=== PATIENT | female | born 1965 | race Caucasian/White ===

== ENCOUNTER → 2017-01-06 | Outpatient (CLI) | payer BC ==
[~2017-01-06] MED LIST: CALC-51 PO; CYAN100020 PO; FERR50TA3 PO; GADAVIST IV PRN; MULTTAB58 PO; SERT-234 PO; VITAMIN D PO; [UNRECOGNIZED DRUG - OTHER] SQ; wellbutrin PO
--- NOTE | 2017-01-06 14:08 | DIAGNOSTIC IMAGING REPORT ---
BRAIN COMBO FOR MS CLINICAL HISTORY: Multiple sclerosis. Left leg pain, tingling and weakness. COMPARISON STUDY: MRI of the brain June 08, 2016. TECHNIQUE: Utilizing a 1.5 Alisson magnet, multiplanar, multi echo imaging of the brain was performed pre and postcontrast administration according to the multiple sclerosis protocol. Injection of 6 cc of Gadavist IV was uneventful. FINDINGS: There are no areas of restricted diffusion. No acute intracranial hemorrhage, midline shift or mass effect is present. Numerous white matter T2 hyperintense foci within the supratentorial and infratentorial brain are noted. These are similar to exam of June 08, 2016. No new foci of demyelination are present. There is no enhancement to suggest active demyelination. The ventricular system is normal. The basilar cisterns are patent. There are no extra-axial collections. Calvarial signal is normal. Orbits and sinuses are unremarkable. Flow-voids for the major intracranial vessels are present. IMPRESSION: 1. No significant change exam of June 08, 2016. Stable foci of previous demyelination without evidence of active demyelination. No new plaques identified. 2. No acute intracranial findings. Electronically signed by: Jono Danielle M.D. 01/06/2017 2:07 PM Dictated Date/Time: 01/06/2017 1:57 PM
--- NOTE | 2017-01-06 14:12 | DIAGNOSTIC IMAGING REPORT ---
CERVICAL SPINE COMBO CLINICAL HISTORY: 51 years-old Female presenting with multiple sclerosis. TECHNIQUE: Multisequence, multiplanar MR imaging of the cervical spine was performed before and after the administration of intravenous contrast. IV contrast: 6 mL of Gadavist. COMPARISON: 06/08/2016. FINDINGS: Normal cervical lordosis. Vertebral body heights and alignment preserved. T1 hypointense, T2 hyperintense, enhancing focus in the C7 vertebral body, stable in comparison to prior and possibly representing an atypical/lipid poor hemangioma. Intervertebral disc spaces preserved. Mild disc osteophyte complex at C5-6 mildly indents the ventral thecal sac. No significant spinal canal or neural foraminal narrowing. Spinal cord is normal in morphology, although sites of abnormal T2 signal intensity within the cord are again noted. Signal abnormality along the right aspect of C2-3 (series 16 image 8) and along the right aspect of the cord at C5 (series 16 image 14). The appearance is similar to prior exam. No new lesions. No focal enhancing lesions to suggest active disease. Craniocervical junction normal. No enhancing lesions visualized in the posterior fossa. Paraspinal soft tissues within normal limits. IMPRESSION: 1. Stable white matter lesions in the cervical spinal cord, consistent with demyelination. No new sites or enhancement to suggest progressed or active disease. 2. Mild disc osteophyte complex at C5-6. No significant spinal canal or neural foraminal narrowing. Electronically signed by: All Nixon M.D. 01/06/2017 2:10 PM Dictated Date/Time: 01/06/2017 1:58 PM
== END | disposition home or self-care (01) ==
LOC: C.MRIBC 12:29
PROVIDERS: ATTEND Psychiatry & Neurology Neurology
DX: G35 Multiple sclerosis (principal); M79.605 Pain in left leg; M25.78 Osteophyte, vertebrae

== ENCOUNTER → 2017-01-15 | Outpatient (CLI) | payer BC ==
[~2017-01-15] MED LIST changes: -GADAVIST IV PRN
[2017-01-15 18:36] LABS: THYROID STIMULATING HORMONE 2.8 uIu/ml (0.300-4.500)
[2017-01-16 12:11] LABS: LYME DISEASE AB IGG NEG (NEG); LYME DISEASE AB IGM NEG (NEG)
== END | disposition home or self-care (01) ==
LOC: C.LAB 16:39
PROVIDERS: ATTEND Psychiatry & Neurology Neurology
DX: G35 Multiple sclerosis (principal)

== ENCOUNTER → 2017-01-22 | Outpatient (CLI) | payer BC ==
[~2017-01-22] MED LIST changes: +GADAVIST IV PRN
--- NOTE | 2017-01-22 15:36 | DIAGNOSTIC IMAGING REPORT ---
THORACIC SPINE COMBO HISTORY: Demyelinating disorder G35 Multiple [id number] TECHNIQUE: Multiplanar multisequence MRI of the thoracic spine was performed both before and after the intravenous administration of contrast. COMPARISON: 11/04/2015 FINDINGS: Alignment and curvature are intact. No fracture or subluxation. No significant central canal or neural foraminal narrowing. Slight increasing cord signal at T9 and T12. Possible findings at T6. No significant postcontrast enhancement. No evidence for disc herniation or spinal stenosis. Signal characteristics of the vertebral bodies as well as intervertebral discs are unremarkable. No significant postcontrast enhancement. IMPRESSION: 1. Subtle increasing cord signal at T12, T9, and possibly T6. 2. These findings are not appreciated on the transaxial images. 3. No evidence for abnormal postcontrast enhancement. 4. The possibility of demyelinating foci must be considered. The above report was generated using voice recognition software. It may contain grammatical, syntax or spelling errors. Electronically signed by: Joshua Orozco M.D. 01/22/2017 3:35 PM Dictated Date/Time: 01/22/2017 3:29 PM
== END | disposition home or self-care (01) ==
LOC: C.MRI 13:50
PROVIDERS: ATTEND Psychiatry & Neurology Neurology
DX: G35 Multiple sclerosis (principal)

== ENCOUNTER → 2017-01-27 | Outpatient (CLI) | payer BC ==
[~2017-01-27] MED LIST changes: -GADAVIST IV PRN
[2017-01-27 12:42] LABS: BASO % 0.5 %; BASO ABS # 0.02 K/uL (0-0.2); COMPLETE YES; EOS % 2.1 %; IG% 0.2 %; LYMPH % 28.4 %; MEAN CELL VOLUME 89.7 fL (80-100); MEAN CORPUSCULAR HEMOGLOBIN 29.8 pg (25-34); MEAN CORPUSCULAR HGB CONC 33.2 g/dl (32-36); MEAN PLATELET VOLUME 10.9 fL (7.4-10.4); MONO % 7.6 %; NEUT % 61.2 %; PLATELET COUNT 253 K/uL (130-400); RED BLOOD COUNT 3.79 M/uL (4.2-5.4); WHITE BLOOD COUNT 4.22 K/uL (4.8-10.8)
[2017-01-27 12:54] LABS: ALT/SGPT 21 U/L (12-78); BLOOD UREA NITROGEN 7 mg/dl (7-18); CALCIUM 9.1 mg/dl (8.5-10.1); CARBON DIOXIDE 28 mmol/L (21-32); CHLORIDE 104 mmol/L (98-107); CREATININE 0.86 mg/dl (0.60-1.20); GLUCOSE 68 mg/dl (70-99); POTASSIUM 3.5 mmol/L (3.5-5.1); SODIUM 138 mmol/L (136-145)
[2017-01-27 12:57] LABS: ALB/GLOB RATIO 1.2 (0.9-2); ALKALINE PHOSPHATASE 78 U/L (45-117); AST/SGOT 17 U/L (15-37)
[2017-02-03 23:30] LABS: JCV ANTIBODY NEGATIVE; JCV INDEX 0.12; VARICELLA ZOS VIR IGM AB <=0.90 (<=0.90)
== END | disposition home or self-care (01) ==
LOC: C.LABBFT 10:39
PROVIDERS: ATTEND Psychiatry & Neurology Neurology
DX: G35 Multiple sclerosis (principal)

== ENCOUNTER → 2017-03-04 | Outpatient (CLI) | payer BC | END | disposition home or self-care (01) | LOC: C.CPL 14:40 | PROVIDERS: ATTEND Psychiatry & Neurology Neurology | DX: G35 Multiple sclerosis (principal) ==

== ENCOUNTER → 2017-05-15 | Outpatient (CLI) | payer BC ==
[2017-05-15 10:02] LABS: BASO % 0.4 %; BASO ABS # 0.01 K/uL (0-0.2); COMPLETE YES; EOS % 1.6 %; HEMATOCRIT 33.2 % (37-47); LYMPH % 16.9 %; LYMPH ABS # 0.41 K/uL (1.2-3.4); MEAN CORPUSCULAR HEMOGLOBIN 29.8 pg (25-34); MEAN CORPUSCULAR HGB CONC 33.4 g/dl (32-36); MEAN PLATELET VOLUME 10.4 fL (7.4-10.4); MONO % 9.9 %; NEUT % 71.2 %; PLATELET COUNT 206 K/uL (130-400); RED BLOOD COUNT 3.73 M/uL (4.2-5.4); WHITE BLOOD COUNT 2.43 K/uL (4.8-10.8)
[2017-05-15 10:26] LABS: ALT/SGPT 24 U/L (12-78); BLOOD UREA NITROGEN 13 mg/dl (7-18); BUN/CREATININE RATIO 14.4 (10-20); CALCIUM 8.8 mg/dl (8.5-10.1); CARBON DIOXIDE 28 mmol/L (21-32); CHLORIDE 104 mmol/L (98-107); GLUCOSE 72 mg/dl (70-99); POTASSIUM 3.4 mmol/L (3.5-5.1); SODIUM 138 mmol/L (136-145)
[2017-05-15 10:29] LABS: ALB/GLOB RATIO 1.3 (0.9-2); ALKALINE PHOSPHATASE 72 U/L (45-117); AST/SGOT 16 U/L (15-37)
== END | disposition home or self-care (01) ==
LOC: C.LAB 09:43
PROVIDERS: ATTEND Psychiatry & Neurology Neurology
DX: G35 Multiple sclerosis (principal)

== ENCOUNTER → 2017-05-31 | Outpatient (CLI) | payer BC ==
[2017-05-31 17:45] LABS: BASO % 0.3 %; BASO ABS # 0.01 K/uL (0-0.2); COMPLETE YES; EOS % 1.4 %; HEMATOCRIT 33.9 % (37-47); LYMPH % 11.7 %; LYMPH ABS # 0.43 K/uL (1.2-3.4); MEAN CELL VOLUME 91.4 fL (80-100); MEAN CORPUSCULAR HEMOGLOBIN 29.6 pg (25-34); MEAN CORPUSCULAR HGB CONC 32.4 g/dl (32-36); MEAN PLATELET VOLUME 11.9 fL (7.4-10.4); MONO % 8.9 %; NEUT % 77.7 %; PLATELET COUNT 187 K/uL (130-400); RED BLOOD COUNT 3.71 M/uL (4.2-5.4); WHITE BLOOD COUNT 3.69 K/uL (4.8-10.8)
== END | disposition home or self-care (01) ==
LOC: C.LABBFT 11:12
PROVIDERS: ATTEND Psychiatry & Neurology Neurology
DX: G35 Multiple sclerosis (principal)

== ENCOUNTER → 2017-09-07 | Outpatient (CLI) | payer BC ==
--- NOTE | 2017-09-07 14:56 | MAMMOGRAPHY REPORT ---
BILATERAL DIGITAL SCREENING MAMMOGRAM TOMOSYNTHESIS WITH CAD: 09/07/2017 CLINICAL HISTORY: Routine screening. Patient has no complaints. TECHNIQUE: Breast tomosynthesis in addition to standard 2D mammography was performed. Current study was also evaluated with a Computer Aided Detection (CAD) system. COMPARISON: Comparison is made to exams dated: 09/25/2015 mammogram, 12/02/2012 mammogram, 12/02/2011 ma mmogram, 11/27/2010 mammogram, and 11/12/2010 mammogram - [facility]. BREAST COMPOSITION: The tissue of both breasts is extremely dense, which lowers the sensitivity of m ammography. FINDINGS: No suspicious masses, calcifications, or areas of architectural distortion are noted in ei ther breast. There has been no significant interval change compared to prior exams. Small nodular as ymmetry within the right medial anterior breast on the cc view is stable dating back to at least the 2012 exam. A few scattered bilateral benign-appearing calcifications are again noted. IMPRESSION: ACR BI-RADS CATEGORY 2: BENIGN There is no mammographic evidence of malignancy. A 1 year screening mammogram is recommended. The pa tient will receive written notification of the results. Approximately 10% of breast cancers are not detected with mammography. A negative mammographic report should not delay biopsy if a clinically suggestive mass is present. Abiola French M.D. /:09/07/2017 14:07:43 Ethics Officer: Maggie AYALA)(Joesph), [facility] letter sent: Normal 1/2 BI-RADS Code: ACR BI-RADS Category 2: Benign
== END | disposition home or self-care (01) ==
LOC: C.MAMM 11:18
PROVIDERS: ATTEND Family Medicine
DX: Z12.31 Encounter for screening mammogram for malignant neoplasm of breast (principal)

== ENCOUNTER → 2017-10-04 | Outpatient (CLI) | payer BC ==
[2017-10-04 15:52] LABS: ALBUMIN 3.7 gm/dl (3.4-5.0); ALT/SGPT 27 U/L (12-78); AST/SGOT 17 U/L (15-37); BLOOD UREA NITROGEN 7 mg/dl (7-18); CALCIUM 8.8 mg/dl (8.5-10.1); CARBON DIOXIDE 29 mmol/L (21-32); CREATININE 0.78 mg/dl (0.60-1.20); GLUCOSE 90 mg/dl (70-99); POTASSIUM 3.9 mmol/L (3.5-5.1); SODIUM 134 mmol/L (136-145)
[2017-10-04 15:55] LABS: ALKALINE PHOSPHATASE 76 U/L (45-117); TOTAL PROTEIN 6.8 gm/dl (6.4-8.2)
[2017-10-04 16:04] LABS: BASO % 0.2 %; BASO ABS # 0.01 K/uL (0-0.2); EOS % 1.5 %; EOS ABS # 0.07 K/uL (0-0.5); HEMATOCRIT 32.7 % (37-47); HEMOGLOBIN 11.1 g/dL (12.0-16.0); IG# 0.01 K/uL (0.00-0.02); LYMPH % 11.3 %; LYMPH ABS # 0.53 K/uL (1.2-3.4); MEAN CELL VOLUME 90.1 fL (80-100); MEAN CORPUSCULAR HEMOGLOBIN 30.6 pg (25-34); MEAN CORPUSCULAR HGB CONC 33.9 g/dl (32-36); MEAN PLATELET VOLUME 10.8 fL (7.4-10.4); MONO % 9.6 %; MONO ABS # 0.45 K/uL (0.11-0.59); NEUT % 77.2 %; NEUT ABS # 3.61 K/uL (1.4-6.5); PLATELET COUNT 232 K/uL (130-400); RED CELL DISTRIBUTION WIDTH CV 12.9 % (11.5-14.5); RED CELL DISTRIBUTION WIDTH SD 42.3 fL (36.4-46.3); WHITE BLOOD COUNT 4.68 K/uL (4.8-10.8)
== END | disposition home or self-care (01) ==
LOC: C.LAB1850 14:35
PROVIDERS: ATTEND Psychiatry & Neurology Neurology
DX: G35 Multiple sclerosis (principal)

== ENCOUNTER 2022-02-04 17:11 | Inpatient (IN) ==
[2022-02-04 18:05] LABS: Basophils # (auto) 0.03 K/uL (0-0.2); Basophils % (auto) 0.2 %; Eosinophils # (auto) 0.06 K/uL (0-0.50); Eosinophils % (auto) 0.5 %; Hematocrit (blood only) 33.4 % (34.1-44.9); Hemoglobin 11.3 g/dl (12.0-16.0); Immature Granulocytes # (auto) 0.04 K/uL (0.00-0.02); Immature Granulocytes % (auto) 0.3 %; Mean Corpuscular Hemoglobin 30.5 pg (25.0-34.0); Mean Corpuscular Hgb Conc 33.8 g/dL (32.0-36.0); Mean Corpuscular Volume 90.3 fL (80.0-100.0); Mean Platelet Volume 10.9 fL (9.4-12.3); Monocytes # (auto) 0.93 K/uL (0.24-0.82); Monocytes % (auto) 7.4 %; Neutrophils # (auto) 10.95 K/uL (1.4-6.5); Neutrophils % (auto) 87.6 %; Platelet Count 238 K/uL (130-400); RDW Coefficient of Variation 12.4 % (11.5-14.5); RDW Standard Deviation 40.8 fL (36.4-46.3); White Blood Count 12.51 K/ul (4.8-10.8)
[2022-02-04] MEDS ORDERED: dexAMETHasone**PF** 10 MG/ML VIAL IV ONE (18:15)
[2022-02-04] MEDS ORDERED: ONDANSETRON INJ 2 MG/ML 2 ML VIAL IV STA (18:15)
[2022-02-04] MEDS: HYDROmorphone INJ 0.5 MG/0.5 ML SYR IV PRN ×2 (18:21→21:03)
[2022-02-04 18:22] LABS: Alanine Aminotransferase 9 U/L (7-52); Albumin Globulin Ratio 1.5 (0.9-2); Albumin Level 4.1 gm/dl (3.4-5.0); Alkaline Phosphatase 84 U/L (34-104); Anion Gap 5 (3-11); Aspartate Aminotransferase 12 U/L (13-39); BUN Creatinine Ratio 9.8 (10-20); Bilirubin,Total 0.7 mg/dl (0.2-1.0); Blood Urea Nitrogen 8 mg/dl (6-23); Calcium 9.7 mg/dl (8.5-10.1); Carbon Dioxide 28 mmol/L (21-32); Chloride 102 mmol/L (98-107); Est GFR (Non-African American) 81.1 ml/min; Globulin 2.7 gm/dl (2.5-4.0); Glucose 102 mg/dl (70-99(Fasting)); Potassium 3.6 mmol/L (3.5-5.1); Sodium 135 mmol/L (136-145); Total Protein 6.8 gm/dl (6.0-8.3)
--- NOTE | 2022-02-04 18:58 | Emergency Department Note ---
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 The patient was evaluated. Clinically she did have swelling on the left side and was quite uncomfortable. She was given IV Dilaudid, Decadron, and Zofran. Blood work revealed a leukocytosis. Chemistry panel was unremarkable. Patient was sent for CT imaging and this did confirm a 1 cm left peritonsillar abscess. There was moderate supraglottic airway edema. Patient was reassessed. She was feeling better but still had moderate pain with swallowing. She had no stridor. Patient was given IV clindamycin. I did consult with ENT, Dr. Koenig. He agreed with the steroids and antibiotics. He felt was reasonable for her to be admitted for additional steroids and antibiotics and he would consult with her tomorrow. He noted at this point the small size of the abscess would be challenging to drain but was concerned about the swelling. Consultation was made with Dr. Umair Torres of the [facility] service. Patient was evaluated in the ER for further management. Triage Nursing notes reviewed and agree them. Vital Signs: reviewed and remarkable for no significant abnormalities Differential diagnosis: Viral syndrome, tonsillitis, streptococcal pharyngitis, mononucleosis, peritonsillar abscess, retropharyngeal abscess, otitis, pneumonia, influenza, as well as other pathologies. Diagnostics interpreted by me: ECG: none Cardiac Monitoring: Cardiac monitoring ordered by me: The patient was placed on continuous cardiac monitoring and observed. It revealed a normal sinus rhythm at 94 beats per minute without ectopy or evidence of dysrhythmia. Imaging studies: CT scan as noted below. Left peritonsillar abscess. HPI: The patient is a 56year old female who presents to the Emergency Room with complaints of acute left-sided sore throat. This started 2 days ago and is worsening. The patient also notes the following associated symptoms, difficulty swallowing. The patient has no relieving factors. Current pain is rated as 8/10. Patient was seen by family medicine and sent to the ER due to concerns about possible peritonsillar abscess on the left side. Pt denies LOC, headache, fevers, chills, diaphoresis, visual changes, right-sided neck pain, chest pain, breathing difficulties, nausea, vomiting, abdominal pain, back pain, melena, hematochezia, urinary symptoms, numbness, weakness, rash, or other complaints. ROS: See above HPI for pertinent positives & negatives. A total of 10 systems reviewed and were otherwise negative. PAST MEDICAL HISTORY:See Below , anxiety, depression PAST SURGICAL HISTORY:See Below, FAMILY HISTORY:See Below SOCIAL HISTORY:See Below, HOME MEDICATIONS:See Below ALLERGIES:See Below VITALS:See Below PHYSICAL EXAMINATION: GENERAL: Awake, alert, uncomfortable-appearing, in no distress HENT: Normocephalic, atraumatic. Oropharynx examination reveals some mild uvular deviation to the right. Mild left tonsillar fossa swelling. No exudate. Tongue and floor the mouth unremarkable. EYES: Normal conjunctiva. Sclera non-icteric. NECK: Inspection normal. [id number]. Supple. No nuchal rigidity. FROM. No masses. No stridor. RESPIRATORY: Clear to auscultation. No wheezes. No rales. Normal respiratory effort. CARDIAC: Normal rate. Normal rhythm. No murmurs. No rubs. Extremities warm and well perfused. Pulses equal. No JVD. GI: Soft, non-distended. No tenderness to palpation. No rebound or guarding. No masses. RECTAL: Deferred. MUSCULOSKELETAL: Atraumatic. Chest examination reveals no tenderness. The back is symmetrical on inspection without obvious abnormality. There is no CVA tenderness to palpation. No joint edema. LOWER EXTREMITIES: Calves are equal size bilaterally and non-tender. No edema. No discoloration. NEURO: Normal sensorium. No sensory or motor deficits noted. SKIN: No rash or jaundice noted. Yovani White MD Past Med/Surg History Medical History (Updated 02/04/22 @ 20:53 by Yoselin Cardenas PA-C) Multiple sclerosis Social History Smoking Status: Never smoker Preferred Language: Macedonian marital status: Current Living Situation: Spouse Feels Safe at Home: Yes Allergies Allergies Allergy/AdvReac Type Severity Reaction Status Date / Time amoxicillin Allergy Intermediate rash Verified 10/30/21 11:22 Penicillins Allergy Unknown Verified 10/30/21 11:22 metronidazole AdvReac Severe diarrhea Verified 10/30/21 11:22 Bactrim AdvReac Intermediate vomiting Unverified 12/09/16 12:37 from oral bactrim sulfamethoxazole AdvReac Intermediate vomiting Verified 10/30/21 11:22 from oral bactrim trimethoprim AdvReac Intermediate vomiting Verified 10/30/21 11:22 from oral bactrim Home Meds Home Medications Medication Instructions Recorded Confirmed bupropion HCl 100 mg tablet,12 hr 100 mg PO DAILY 08/16/18 02/04/22 sustained-release (Wellbutrin SR) cholecalciferol (vitamin D3) 25 0 unit PO DAILY 08/16/18 02/04/22 mcg (1,000 unit) capsule (Vitamin D3) lorazepam 0.5 mg tablet (Ativan) 0.5 mg PO DAILY PRN Anxiety 08/16/18 02/04/22 multivitamin 1 tab PO DAILY 08/16/18 02/04/22 sertraline 100 mg tablet (Zoloft) 100 mg PO HS 08/16/18 02/04/22 Previous Rx's Medication Instructions Recorded ocrelizumab 30 mg/mL intravenous 600 mg (20 mL) IV .COMPLEX #10 mL 09/22/21 solution (Ocrevus) gabapentin 100 mg capsule 100 mg PO BID 90 days #180 caps 12/26/21 Results & Data (ED) Vital Signs Vital Signs - 24 hr 02/04/22 17:14 02/04/22 18:02 Temperature 36.5 C Temperature Source Skin Pulse Rate 94 H Pulse Rhythm Regular Pulse Strength Normal Respiratory Rate 18 Respiratory Effort / Characteristics Non-Labored Spontaneous Respiratory Depth Normal Respiratory Pattern Regular Blood Pressure 129/79 Blood Pressure Mean 95 Blood Pressure Position Sitting Pulse Oximetry 99 Oxygen Delivery Method Room Air Room Air Sepsis Recent Fever Within 48 Hours No Sepsis New/Unexplained Change in Mental Status No Sepsis Action Taken by Nursing No Action Required Laboratory Data Result diagrams: 02/04/22 17:50 02/04/22 17:50 Lab Results 02/04/22 02/04/22 02/04/22 Range/Units 17:50 17:50 17:50 WBC 12.51 H (4.8-10.8) K/ul RBC 3.70 L (3.93-5.22) M/uL Hgb 11.3 L (12.0-16.0) g/dl Hct 33.4 L (34.1-44.9) % MCV 90.3 (80.0-100.0) fL MCH 30.5 (25.0-34.0) pg MCHC 33.8 (32.0-36.0) g/dL RDW Std Deviation 40.8 (36.4-46.3) fL RDW Coeff of Sandee 12.4 (11.5-14.5) % Plt Count 238 (130-400) K/uL MPV 10.9 (9.4-12.3) fL Immature Gran % (Auto) 0.3 % Neut % (Auto) 87.6 % Lymph % (Auto) 4.0 % Meade % (Auto) 7.4 % Eos % (Auto) 0.5 % Baso % (Auto) 0.2 % Neut # (Auto) 10.95 H (1.4-6.5) K/uL Lymph # (Auto) 0.50 L (1.2-3.4) K/uL Meade # (Auto) 0.93 H (0.24-0.82) K/uL Eos # (Auto) 0.06 (0-0.50) K/uL Baso # (Auto) 0.03 (0-0.2) K/uL Immature Gran # (Auto) 0.04 H (0.00-0.02) K/uL Sodium 135 L (136-145) mmol/L Potassium 3.6 (3.5-5.1) mmol/L Chloride 102 (98-107) mmol/L Carbon Dioxide 28 (21-32) mmol/L Anion Gap 5 (3-11) BUN 8 (6-23) mg/dl Creatinine 0.82 (0.6-1.2) mg/dl Est Cr Clr Drug Dosing Not Reportable Est GFR ( Amer) 94.0 ml/min Est GFR (Non-Af Amer) 81.1 ml/min BUN/Creatinine Ratio 9.8 L (10-20) Glucose 102 H (70-99(Fasting)) mg/dl Calcium 9.7 (8.5-10.1) mg/dl Total Bilirubin 0.7 (0.2-1.0) mg/dl AST 12 L (13-39) U/L ALT 9 (7-52) U/L Alkaline Phosphatase 84 (34-104) U/L Total Protein 6.8 (6.0-8.3) gm/dl Albumin 4.1 (3.4-5.0) gm/dl Globulin 2.7 (2.5-4.0) gm/dl Albumin/Globulin Ratio 1.5 (0.9-2) SARS-CoV-2, RNA, NAAT NEGATIVE (NEGATIVE) Administered Medications Hydromorphone HCl (Hydromorphone Inj 0.5 Mg/0.5 Ml Syr) 0.5 mg IV Q15M PRN PRN Reason: Pain Stop: 02/18/22 18:14 Last Admin: 02/04/22 21:03 Dose: 0.5 mg Documented By: Admin: 02/04/22 18:21 Dose: 0.5 mg Documented By: RAMOS Miscellaneous (Patient's Height &/Or Weight Needed) 1 each N/A Q2H ELLEN Stop: 02/04/22 23:59 Last Admin: 02/04/22 21:25 Dose: 1 each Documented By: RAMOS Discontinued Medications Dexamethasone Sodium Phosphate (DexamethasonePf 10 Mg/Ml Vial) 10 mg IV NOW ONE Stop: 02/04/22 18:16 Last Admin: 02/04/22 18:22 Dose: 10 mg Documented By: RAMOS Clindamycin Phosphate (Cleocin/D5w) 600 mg in 50 mls @ 100 mls/hr IV NOW ONE Stop: 02/04/22 20:19 Last Infusion: 02/04/22 22:11 Dose: 0 mls/hr Documented By: Admin: 02/04/22 21:41 Dose: 100 mls/hr Documented By: RAMOS Ioversol (Optiray 300 100ml) 80 ml IV ONCE ONE Stop: 02/04/22 19:14 Last Admin: 02/04/22 19:14 Dose: 80 ml Documented By: PERLITA Ondansetron HCl (Ondansetron Inj 2 Mg/Ml 2 Ml Vial) 4 mg IV NOW STA Stop: 02/04/22 18:16 Last Admin: 02/04/22 18:22 Dose: 4 mg Documented By: RAMOS Imaging Data Radiologist's Impression: Soft Tissue Neck CT 02/04/22 18:15 CT OF THE NECK WITH IV CONTRAST CLINICAL HISTORY: Left neck pain and swelling. Evaluate for peritonsillar abscess. COMPARISON STUDY: MRI of the cervical spine June 02, 2021. Thyroid u ltrasound November 08, 2018. TECHNIQUE: Following IV administration of 80 mL of Optiray, helical axial images of the neck were obtained. Sagittal and coronal reconstructions were viewed. Automated exposure control was utilized for the study. A dose lowering technique was utilized adhering to the principles of ALARA. CT DOSE: 289.10 mGy.cm FINDINGS: Visualized portions of the intracranial contents are unremarkable. Mastoid air cells are clear. There is mild polypoid mucosal thickening of the right maxillary sinus. Orbits are unremarkable. Epiglottis is unremarkable. Note is made of asymmetric enhancement of the left tonsil with moderate peritonsillar edema and associated thickening of the left aryepiglottic fold. The left aspect of the vallecula and left piriform sinus are effaced. There is moderate narrowing of the supraglottic airway. Note is made of an associated 1 cm enhancing fluid collection adjacent to the left tonsils shown on axial image 132 of 309 consistent with a small peritonsillar abscess. There is no soft tissue gas. There is no prevertebral edema. No additional fluid collections are present. Parotid and submandibular glands are unremarkable. 1.4 cm hypodense right lobe thyroid nodule is better depicted on prior thyroid ultrasound. Visualized portions of the lung apices are unremarkable. Major vasculature of the neck is patent. IMPRESSION: Acute left-sided tonsillitis with a small 1 cm peritonsillar abscess. Moderate left parapharyngeal/peritonsillar edema with thickening of the left aryepiglottic fold and effacement of the left piriform sinus. Edema results in moderate supraglottic airway narrowing. ACT 112: Negative or not required by law. Electronically signed by: Jono Danielle M.D. 02/04/2022 7:36 PM Discharge Plan Visit Data Chief Complaint: Throat Pain Stated Complaint: REF BY , THROAT PAIN ED Provider: Yovani White Discharge Problem: Peritonsillar abscess, Acute sore throat, Leukocytosis Forms Stand Alone Forms: My Identiv Prescriptions Prescriptions: No Action gabapentin 100 mg capsule 100 mg PO BID 90 Days Qty: 180 1RF Hold Instructions: temporary increase for one week Ocrevus 30 mg/mL solution 600 mg IV .COMPLEX Qty: 10 1RF Rx Instructions: 300 mg IV Day1 and Day15,then 600mg IV every 6 months. 30 mins before each infusion, premedicate w/ methylprednisolone 100mg iv,Diphenhydramine 25mg iv,and Actaminophen 500mg PO. ; May give an additional 25mg diphenhydramine IV during infusion PRN multivitamin Tablet 1 tab PO DAILY sertraline [Zoloft] 100 mg tablet 100 mg PO HS bupropion HCl [Wellbutrin SR] 100 mg tablet sustained-release 12 hr 100 mg PO DAILY lorazepam [Ativan] 0.5 mg tablet 0.5 mg PO DAILY PRN (Reason: Anxiety) cholecalciferol (vitamin D3) [Vitamin D3] 1,000 unit Capsule 0 unit PO DAILY Referrals Referrals: Isaac Navarro MD [Primary Care Provider] -
[2022-02-04] MEDS ORDERED: OPTIRAY 300 100mL IV ONE (19:13)
--- NOTE | 2022-02-04 19:39 | CT Scan Report ---
CT OF THE NECK WITH IV CONTRAST CLINICAL HISTORY: Left neck pain and swelling. Evaluate for peritonsillar abscess. COMPARISON STUDY: MRI of the cervical spine June 02, 2021. Thyroid ultrasound November 08, 2018. TECHNIQUE: Following IV administration of 80 mL of Optiray, helical axial images of the neck were ob tained. Sagittal and coronal reconstructions were viewed. Automated exposure control was utilized f or the study. A dose lowering technique was utilized adhering to the principles of ALARA. CT DOSE: 289.10 mGy.cm FINDINGS: Visualized portions of the intracranial contents are unremarkable. Mastoid air cells are c lear. There is mild polypoid mucosal thickening of the right maxillary sinus. Orbits are unremarkable . Epiglottis is unremarkable. Note is made of asymmetric enhancement of the left tonsil with moderate peritonsillar edema and associated thickening of the left aryepiglottic fold. The left aspect of the vallecula and left piriform sinus are effaced. There is moderate narrowing of the supraglottic airwa y. Note is made of an associated 1 cm enhancing fluid collection adjacent to the left tonsils shown o n axial image 132 of 309 consistent with a small peritonsillar abscess. There is no soft tissue gas. There is no prevertebral edema. No additional fluid collections are present. Parotid and submandibula r glands are unremarkable. 1.4 cm hypodense right lobe thyroid nodule is better depicted on prior thy roid ultrasound. Visualized portions of the lung apices are unremarkable. Major vasculature of the ne ck is patent. IMPRESSION: Acute left-sided tonsillitis with a small 1 cm peritonsillar abscess. Moderate left parapharyngeal/pe ritonsillar edema with thickening of the left aryepiglottic fold and effacement of the left piriform sinus. Edema results in moderate supraglottic airway narrowing. ACT 112: Negative or not required by law. Electronically signed by: Jono Danielle M.D. 02/04/2022 7:36 PM
[2022-02-04] MEDS ORDERED: CLINDAMYCIN/D5W 600 MG/50 ML BAG IV ONE (19:50)
--- NOTE | 2022-02-04 20:14 | History & Physical Report ---
Date of Service February 04, 2022 Assessment & Plan (1) Peritonsillar abscess: Plan: - CT shows acute left-sided tonsillitis with a small 1 cm peritonsillar abscess. Moderate left parapharyngeal/peritonsillar edema with thickening of the left aryepiglottic fold and effacement of the left piriform sinus. Edema results in moderate supraglottic airway narrowing. - Clindamycin 600 mg IV every 8 hours, will add on Levaquin for H flu coverage. - 10 mg IV dexamethasone in ED, repeat this tomorrow. - N.p.o. now, supportive fluids - ENT consultation placed, appreciate their recommendations. - Pain control with Tylenol, morphine. - Antiemetics as needed. (2) Multiple sclerosis: Plan: - Ocrelizumab injections every 6 months, due next month. - Gabapentin 100 mg daily; hold while NPO. (3) Depression: Plan: - Hold all p.o. meds that cannot be converted to IV. - Takes Zoloft 100 mg at night, Ativan 0.5 mg as needed, Wellbutrin 100 mg daily. (4) Anemia: Plan: - 11.3, consistent with outpatient labs. Monitor. Plan - Admit to PCU. - SCDs for VTE ppx. - Full Code. History of Present Illness Chief Complaint: Throat pain and difficulty swallowing x2 days Primary Care Provider: Isaac Navarro MD Danisha Greene is a 56-year-old female with a past medical history significant for MS and depression who presents today with a sore throat. Yesterday morning, she woke up and the left side of her throat was sore and she felt fatigued. She took Advil and slept the rest of the day, the pain got somewhat better but never really went away. She woke up this morning and it was significantly worse and she was having difficulty swallowing due to pain, managing only to sip on chicken broth. She saw her PCP who referred her to the ED due to concerns for a peritonsillar abscess. She has been hot and cold the past two days but no objective fevers, SOB, choking, chest pain, palpitations, nausea, or vomiting. She has not had this occur before, no recent dental work or ENT infections. In ED, patient's HR 94, otherwise vital signs within normal limits, they are stable. Labs significant for WBC 12.51 with left shift, Hgb 11.3 which is consistent with her baseline, renal function at baseline, without any electrolyte abnormalities, no transaminitis. COVID-negative. CT of soft tissues of the neck showed acute left-sided tonsillitis with a small 1 cm peritonsillar abscess and moderate left parapharyngeal/peritonsillar edema with thickening of the left aryepiglottic fold and effacement of the left piriform sinus with moderate supraglottic airway narrowing. Patient received clindamycin, dexamethasone, hydromorphone, and Zofran in the ED. Allergies Allergy/AdvReac Type Severity Reaction Status Date / Time amoxicillin Allergy Intermediate rash Verified 10/30/21 11:22 Penicillins Allergy Unknown Verified 10/30/21 11:22 metronidazole AdvReac Severe diarrhea Verified 10/30/21 11:22 Bactrim AdvReac Intermediate vomiting Unverified 12/09/16 12:37 from oral bactrim sulfamethoxazole AdvReac Intermediate vomiting Verified 10/30/21 11:22 from oral bactrim trimethoprim AdvReac Intermediate vomiting Verified 10/30/21 11:22 from oral bactrim Home Medications Medication Instructions Recorded Confirmed Type bupropion HCl 100 mg tablet,12 hr 100 mg PO DAILY 08/16/18 02/04/22 History sustained-release (Wellbutrin SR) cholecalciferol (vitamin D3) 25 0 unit PO DAILY 08/16/18 02/04/22 History mcg (1,000 unit) capsule (Vitamin D3) lorazepam 0.5 mg tablet (Ativan) 0.5 mg PO DAILY PRN Anxiety 08/16/18 02/04/22 History multivitamin 1 tab PO DAILY 08/16/18 02/04/22 History sertraline 100 mg tablet (Zoloft) 100 mg PO HS 08/16/18 02/04/22 History ocrelizumab 30 mg/mL intravenous 600 mg (20 mL) IV .COMPLEX #10 mL 09/22/21 02/04/22 Rx solution (Ocrevus) gabapentin 100 mg capsule 100 mg PO BID 90 days #180 caps 12/26/21 02/04/22 Rx Past Med/Surg History Medical History Multiple sclerosis Social History Smoking Status: Never smoker Hx Alcohol Use: No Preferred Language: Setswana Beliefs That Will Affect Care: None marital status: Current Living Situation: Spouse and Family Feels Safe at Home: Yes Safety Concerns: Feels Safe At This Time Assistive Devices: Cane Assistive Devices Comment: uses cane occassionaly Review of Systems Review of Systems: Constitutional: No fever/chills, weakness, fatigue, myalgias, anorexia, night sweats Eyes: No diplopia, no worsening or blurred vision ENT: sore throat, difficulty swallowing Respiratory: No cough, sputum, dyspnea at rest or on exertion Cardiovascular: No chest pain, tightness or palpitations Abdomen: No pain, nausea, vomiting, diarrhea or constipation : Denies dysuria, hematuria, increased urgency/frequency, urinary retention Musculoskeletal: No joint pain, calf pain, swelling Neurologic: No weakness, numbness/tingling, or balance problems Psychiatric: No anxiety or depression Skin: No rash or itch Physical Exam Physical Exam: General: awake, alert, no apparent distress Head: Normocephalic, atraumatic ENT: left tonsil appears inflamed with minimal white exudate noted, swelling on left side of throat; exam limited by patient's pain; PERRL, EOMI, mucous membranes moist Chest: Clear to auscultation, on room air, no adventitious breath sounds Cardiac: Regular rate and rhythm, no murmur, no JVD, normal peripheral pulses, good capillary refill Abdominal: NABS x 4 quadrants, soft, nontender to palpation, no rebound, guarding or tenderness Extremities: Normal inspection, no peripheral edema or erythema, calfs nontender to palpation Psych: Normal mood and affect Neuro: AAO x 3, strength intact bilaterally and rated 5/5, no motor deficits, speech is clear, no peripheral sensory deficits Skin: no rash or erythema Results & Data Results & Data ([facility]) Vital Signs (Past 12 Hours) Vital Signs Temp Pulse Resp BP Pulse Ox O2 Del Method 02/04/22 18:02 Room Air 02/04/22 17:14 36.5 C 94 H 18 129/79 99 Room Air Laboratory Results Abnormal lab results 02/04/22 02/04/22 Range/Units 17:50 17:50 WBC 12.51 H (4.8-10.8) K/ul RBC 3.70 L (3.93-5.22) M/uL Hgb 11.3 L (12.0-16.0) g/dl Hct 33.4 L (34.1-44.9) % Neut # (Auto) 10.95 H (1.4-6.5) K/uL Lymph # (Auto) 0.50 L (1.2-3.4) K/uL [place] # (Auto) 0.93 H (0.24-0.82) K/uL Immature Gran # (Auto) 0.04 H (0.00-0.02) K/uL Sodium 135 L (136-145) mmol/L BUN/Creatinine Ratio 9.8 L (10-20) Glucose 102 H (70-99(Fasting)) mg/dl AST 12 L (13-39) U/L Diagnostic Findings Soft Tissue Neck CT 02/04/22 18:15 CT OF THE NECK WITH IV CONTRAST CLINICAL HISTORY: Left neck pain and swelling. Evaluate for peritonsillar abscess. COMPARISON STUDY: MRI of the cervical spine June 02, 2021. Thyroid ultrasound November 08, 2018. TECHNIQUE: Following IV administration of 80 mL of Optiray, helical axial images of the neck were obtained. Sagittal and coronal reconstructions were viewed. Automated exposure control was utilized for the study. A dose lowering technique was utilized adhering to the principles of ALARA. CT DOSE: 289.10 mGy.cm FINDINGS: Visualized portions of the intracranial contents are unremarkable. Mastoid air cells are clear. There is mild polypoid mucosal thickening of the right maxillary sinus. Orbits are unremarkable. Epiglottis is unremarkable. Note is made of asymmetric enhancement of the left tonsil with moderate peritonsillar edema and associated thickening of the left aryepiglottic fold. The left aspect of the vallecula and left piriform sinus are effaced. There is moderate narrowing of the supraglottic airway. Note is made of an associated 1 cm enhan cing fluid collection adjacent to the left tonsils shown on axial image 132 of 309 consistent with a small peritonsillar abscess. There is no soft tissue gas. There is no prevertebral edema. No additional fluid collections are present. Parotid and submandibular glands are unremarkable. 1.4 cm hypodense right lobe thyroid nodule is better depicted on prior thyroid ultrasound. Visualized portions of the lung apices are unremarkable. Major vasculature of the neck is patent. IMPRESSION: Acute left-sided tonsillitis with a small 1 cm peritonsillar abscess. Moderate left parapharyngeal/peritonsillar edema with thickening of the left aryepiglottic fold and effacement of the left piriform sinus. Edema results in moderate supraglottic airway narrowing. ACT 112: Negative or not required by law. Electronically signed by: Jono Danielle M.D. 02/04/2022 7:36 PM Code Status & VTE Plan Code Status Full code. Supervising Physician Co-Signing Physician Notes Attending addendum: I have physically seen this patient, have supervised the JAIME's activities, and agree with the H&P unless as otherwise noted. Assessment and Plan: Peritonsillar abscess- Immunocompromised Clindamycin 600 mg IV every 8 hours Levofloxacin 5 mg IV daily N.p.o. IV fluids Acetaminophen 1 g IV every 8 hours as needed for mild pain or fever Morphine sulfate 2 mg IV every 4 hours as needed for moderate to severe pain Zofran 4 mg IV every 6 hours as needed Consult ENT Multiple sclerosis- Outpatient injections every 6 months Remaining orders and notations as noted PG Care Time/CCT Total # of Minutes Spent Total Time Spent with Patient: Total time spent is greater than 50% in coordination of care (as documented) at patient's floor/unit and/or counseling patient: Coding Level of Care Code 49474 Initial Inpt Care Lvl 1 Diagnoses Peritonsillar abscess J36 Multiple sclerosis G35 Depression F32.A Anemia D64.9
[2022-02-04] MEDS: Patient's HEIGHT &/or WEIGHT Needed SCH (21:25)
[2022-02-05] MEDS ORDERED: HYDROmorphone INJ 0.5 MG/0.5 ML SYR IV PRN ×2 (00:33)
[2022-02-05] MEDS ORDERED: LACTATED RINGER'S 1,000 ML IV SCH (00:33)
[2022-02-05] MEDS ORDERED: POLYETHYLENE (MIRALAX) 17 GM PACK PO PRN (00:33)
[2022-02-05] MEDS ORDERED: ACETAMINOPHEN 1,000 MG/100 ML VIAL IV PRN (00:33)
[2022-02-05] MEDS ORDERED: levoFLOXacin/D5W 750 MG/150 ML BAG IV SCH (01:00)
[2022-02-05] MEDS: Patient's HEIGHT &/or WEIGHT Needed SCH (01:22)
[2022-02-05] MEDS ORDERED: HYDROmorphone INJ 1 MG/ML SYRINGE IV ONE (04:00)
[2022-02-05 05:09] LABS: Hematocrit (blood only) 32.5 % (34.1-44.9); Hemoglobin 10.8 g/dl (12.0-16.0); Mean Corpuscular Hemoglobin 29.7 pg (25.0-34.0); Mean Corpuscular Hgb Conc 33.2 g/dL (32.0-36.0); Mean Corpuscular Volume 89.3 fL (80.0-100.0); Mean Platelet Volume 11.2 fL (9.4-12.3); Platelet Count 237 K/uL (130-400); RDW Coefficient of Variation 12.2 % (11.5-14.5); Red Blood Count 3.64 M/uL (3.93-5.22); White Blood Count 13.98 K/ul (4.8-10.8)
[2022-02-05 05:38] LABS: Basophils # (auto) 0.01 K/uL (0-0.2); Basophils % (auto) 0.1 %; Immature Granulocytes # (auto) 0.06 K/uL (0.00-0.02); Immature Granulocytes % (auto) 0.4 %; Lymphocytes # (auto) 0.39 K/uL (1.2-3.4); Lymphocytes % (auto) 2.8 %; Monocytes # (auto) 0.36 K/uL (0.24-0.82); Monocytes % (auto) 2.6 %; Neutrophils # (auto) 13.16 K/uL (1.4-6.5); Neutrophils % (auto) 94.1 %; Ovalocytes 1+
[2022-02-05 05:39] LABS: BUN Creatinine Ratio 15.4 (10-20); Calcium 9.6 mg/dl (8.5-10.1); Est GFR (African American) 116.7 ml/min; Est GFR (Non-African American) 100.7 ml/min; Potassium 4.2 mmol/L (3.5-5.1)
[2022-02-05] MEDS: CLINDAMYCIN/D5W 600 MG/50 ML BAG IV SCH ×3 (06:03→21:49)
[2022-02-05] MEDS: HYDROmorphone INJ 1 MG/ML SYRINGE IV PRN ×3 (08:43→21:48)
[2022-02-05] MEDS ORDERED: dexAMETHasone 10 MG in SYRINGE 0 ML IV SCH (09:00)
--- NOTE | 2022-02-05 12:39 | ENT Consultation ---
Date of Consultation February 05, 2022 Assessment & Plan (1) Peritonsillar abscess: For incision and drainage of left peritonsillar abscess History of Present Illness Reason for Consultation: Left peritonsillar abscess Attending Physician: Joe Claudio DO History of Present Illness This 56-year-old lady presented with increasing sore throat and dysphagia, presented to the ER, CT scan showed 1 cm left peritonsillar abscess, not responding to medical management. Allergies Allergy/AdvReac Type Severity Reaction Status Date / Time amoxicillin Allergy Intermediate rash Verified 10/30/21 11:22 Penicillins Allergy Unknown Verified 10/30/21 11:22 metronidazole AdvReac Severe diarrhea Verified 10/30/21 11:22 Bactrim AdvReac Intermediate vomiting Unverified 12/09/16 12:37 from oral bactrim sulfamethoxazole AdvReac Intermediate vomiting Verified 10/30/21 11:22 from oral bactrim trimethoprim AdvReac Intermediate vomiting Verified 10/30/21 11:22 from oral bactrim Home Medications Medication Instructions Recorded Confirmed Type bupropion HCl 100 mg tablet,12 hr 100 mg PO DAILY 08/16/18 02/04/22 History sustained-release (Wellbutrin SR) cholecalciferol (vitamin D3) 25 0 unit PO DAILY 08/16/18 02/04/22 History mcg (1,000 unit) capsule (Vitamin D3) lorazepam 0.5 mg tablet (Ativan) 0.5 mg PO DAILY PRN Anxiety 08/16/18 02/04/22 History multivitamin 1 tab PO DAILY 08/16/18 02/04/22 History sertraline 100 mg tablet (Zoloft) 100 mg PO HS 08/16/18 02/04/22 History ocrelizumab 30 mg/mL intravenous 600 mg (20 mL) IV .COMPLEX #10 mL 09/22/21 02/04/22 Rx solution (Ocrevus) gabapentin 100 mg capsule 100 mg PO BID 90 days #180 caps 12/26/21 02/04/22 Rx Patient History Medical History Multiple sclerosis Social History Smoking Status: Never smoker Hx Alcohol Use: No Preferred Language: Kazakh Beliefs That Will Affect Care: None marital status: Current Living Situation: Spouse and Family Feels Safe at Home: Yes Safety Concerns: Feels Safe At This Time Assistive Devices: Cane Assistive Devices Comment: uses cane occassionaly Physical Exam Constitutional: WD/WN, vitals as above Eyes: PERRL, conjunctivae normal, anicteric sclerae ENMT: external ear and nose normal, oropharynx normal Mouth: + oropharynx abnormality (Left soft palate erythema and bulging, tonsillitis with exudate) Neck: trachea midline, no thyromegaly Results & Data ([facility]) Vital Signs (Past 12 Hours) Vital Signs Temp Pulse Pulse Resp BP Pulse Ox O2 Del Method 02/05/22 11:28 36.6 C 80 18 113/72 97 Room Air 02/05/22 08:00 72 02/05/22 08:06 36.5 C 84 18 112/73 98 Room Air 02/05/22 04:00 36.5 C 70 16 121/75 94 Room Air
--- NOTE | 2022-02-05 15:30 | Hospitalist Progress Note ---
Date of Service February 05, 2022 Assessment & Plan (1) Peritonsillar abscess: Plan: (1) Peritonsillar abscess: Plan: - CT shows acute left-sided tonsillitis with a small 1 cm peritonsillar abscess. Moderate left parapharyngeal/peritonsillar edema with thickening of the left aryepiglottic fold and effacement of the left piriform sinus. Edema results in moderate supraglottic airway narrowing. -Incision and drainage today performed later today by ENT - Clindamycin 600 mg IV every 8 hours, discontinued Levaquin has bacteria is most likely strep pyogenes -Will be converted to oral when she can tolerate po intake and will need to complete a 14 day course of clinda. Today is day 2 of 14 - 10 mg IV dexamethasone in ED, additional dose today - N.p.o. now, supportive fluids until after procedure, then diet as tolerated - Pain control with Tylenol, dilaudid - Antiemetics as needed. (2) Multiple sclerosis: Plan: - Ocrelizumab injections every 6 months, due next month. - Gabapentin 100 mg daily; hold while NPO, will restart tomorrow (3) Depression: Plan: - Hold all p.o. meds that cannot be converted to IV. - Takes Zoloft 100 mg at night, Ativan 0.5 mg as needed, Wellbutrin 100 mg daily. (4) Anemia: Plan: - 11.3, consistent with outpatient labs. Monitor. - Dispo: Currently in PCU, can downgrade assuming I&D goes without complication - DVT Prophylaxis: SCDs for VTE ppx. - Code status: Full Code. (2) Multiple sclerosis: (3) Anemia: (4) Depression: Admission and Anticipated Discharge Date Admission Date: February 04, 2022 Supervising Physician Co-Signing Physician Notes I personally examined the patient and verified all platt points of history and exam, discussed case, and agree with decision making with Dr Angel Feeling okay overall. For surgery later today. Pain controlled vitals noted nad heent nc at mmm breathing unlabored no stridor no accessory muscles good effort skin no rashes no pallor or icterus peritonsilar abscess w sepsis present on admission - abx, for surgery today, pain control, supportive care. otherwise as above Subjective Patient seen at bedside this morning. No acute events reported overnight. Pa tient and a great deal of pain rating it about an 8 out of 10 and difficulty with speaking. Unfortunately patient has not taken any of her medications for the past day due to the inability to swallow. Overall concerned about this as she does not want to lose the efficacy of any of her medications. Reassured her that should be fine for a couple of days without medications that she is on. Otherwise overall feeling okay just excruciating amount of pain currently. She is asking for Dilaudid as soon as she is allowed to have it. Otherwise no other complaints at this time. Review of Systems Review of Systems: All systems reviewed & are unremarkable except as noted in HPI & below Physical Exam Constitutional: WD/WN, vitals as above Eyes: + anicteric sclerae ENMT: Mouth: + oral mucosal abnormality (left soft palate swelling and tonsillar exudate. R uvula deviation.) and + muffled voice Neck: trachea midline, no thyromegaly Respiratory: normal respiratory effort, lungs clear to auscultation Cardiovascular: RRR, no murmur, no edema Gastrointestinal (Abdomen): normal bowel sounds, soft, nontender, no hepatosplenomegaly Musculoskeletal: Head/Neck/Chest: normocephalic and head atraumatic Skin: no rashes, warm and dry Neurologic: moves all extremities Psychiatric: Orientation: alert and oriented x 3 Affect: + anxious affect Results & Data Results & Data ([facility]) Vital Signs (Past 12 Hours) Vital Signs Temp Pulse Pulse Resp BP Pulse Ox O2 Del Method 02/05/22 11:28 36.6 C 80 18 113/72 97 Room Air 02/05/22 08:00 72 02/05/22 08:06 36.5 C 84 18 112/73 98 Room Air 02/05/22 04:00 36.5 C 70 16 121/75 94 Room Air
--- NOTE | 2022-02-05 15:44 | Anesthesiology Consultation ---
Date of Service February 05, 2022 Assessment & Plan Chart Review Chart Review: Acceptable Risk for Surgery History Surgery Operation Date: 02/05/22 13:05 Proposed Procedures p Left Incision and Drainage Peritonsillar Abscess - Kell Koenig MD Height/Weight Height: 5 ft 5 in Weight: 66.3 kg Allergies Allergy/AdvReac Type Severity Reaction Status Date / Time amoxicillin Allergy Intermediate rash Verified 10/30/21 11:22 Penicillins Allergy Unknown Verified 10/30/21 11:22 metronidazole AdvReac Severe diarrhea Verified 10/30/21 11:22 Bactrim AdvReac Intermediate vomiting Unverified 12/09/16 12:37 from oral bactrim sulfamethoxazole AdvReac Intermediate vomiting Verified 10/30/21 11:22 from oral bactrim trimethoprim AdvReac Intermediate vomiting Verified 10/30/21 11:22 from oral bactrim Medications Home Medications Medication Instructions Recorded Confirmed Last Taken bupropion HCl 100 mg tablet,12 hr 100 mg PO DAILY 08/16/18 02/04/22 02/03/22 sustained-release (Wellbutrin SR) cholecalciferol (vitamin D3) 25 0 unit PO DAILY 08/16/18 02/04/22 02/03/22 mcg (1,000 unit) capsule (Vitamin D3) lorazepam 0.5 mg tablet (Ativan) 0.5 mg PO DAILY PRN Anxiety 08/16/18 02/04/22 Unknown multivitamin 1 tab PO DAILY 08/16/18 02/04/22 02/03/22 sertraline 100 mg tablet (Zoloft) 100 mg PO HS 08/16/18 02/04/22 02/03/22 ocrelizumab 30 mg/mL intravenous 600 mg (20 mL) IV .COMPLEX #10 mL 09/22/21 02/04/22 Unknown solution (Ocrevus) gabapentin 100 mg capsule 100 mg PO BID 90 days #180 caps 12/26/21 02/04/22 02/03/22 Active Medications Generic Name Dose Route Start Last Admin Trade Name Freq PRN Reason Stop Dose Admin Hydromorphone HCl 1 mg 02/05/22 03:51 02/05/22 08:43 Hydromorphone Inj 1 Mg/Ml Syringe IV 02/19/22 03:50 1 mg Q3H PRN Administration Pain (6,7,8,9,10) Levofloxacin/Dextrose 750 mg in 150 mls @ 100 mls/hr 02/05/22 01:00 02/05/22 03:42 Levaquin/D5w IV 02/15/22 00:59 Infused Q24H ELLEN Infusion Clindamycin Phosphate 600 mg in 50 mls @ 100 mls/hr 02/05/22 06:00 02/05/22 13:49 Cleocin/D5w IV 02/15/22 05:59 Infused Q8H ELLEN Infusion Dexamethasone 10 mg/ Syringe 2.5 mls @ 1 mls/min 02/05/22 09:00 02/05/22 08:43 IV 03/07/22 08:59 1 mls/min QAM ELLEN Administration NPO Date Last Intake of Fluids: 02/04/22 Time Last Intake of Fluids: 00:00 Date Last Intake of Solids: 02/04/22 Time Last Intake of Solids: 00:00 Past Medical History Medical History Multiple sclerosis Social History Smoking Status: Never smoker Hx Alcohol Use: No Physical Exam Vital Signs Last Vital Signs Temp 36.6 C 02/05/22 11:28 Pulse 80 02/05/22 11:28 Resp 18 02/05/22 11:28 BP 113/72 02/05/22 11:28 Pulse Ox 97 02/05/22 11:28 O2 Del Method 02/05/22 11:28 Testing Laboratory Results 02/05/22 04:27 02/05/22 04:27
[2022-02-05] MEDS ORDERED: ATROPINE SULFATE 0.1 MG/ML 10ML SYR IV PRN (15:58)
[2022-02-05] MEDS ORDERED: ONDANSETRON INJ 2 MG/ML 2 ML VIAL IV PRN (15:58)
[2022-02-05] MEDS ORDERED: PROMETHAZINE HCL 6.25 MG in SODIUM CHLORIDE 0.9% 50 ML IV PRN (15:58)
[2022-02-05] MEDS ORDERED: fentaNYL citrate 100 MCG/2 ML VIAL ONE (16:03)
[2022-02-05] MEDS ORDERED: LIDOCAINE 2% MPF LOCAL 5 ML VIAL INFIL ONE (16:03)
[2022-02-05] MEDS ORDERED: MIDAZOLAM HCL 1 MG/ML 2ML VIAL ONE (16:03)
[2022-02-05] MEDS ORDERED: PROPOFOL IV EMULSION 10 MG/ML 100 ML VIAL IV ONE (16:03)
[2022-02-05] MEDS ORDERED: DEXAMETHASONE SOD INJ 4 MG/ML VIAL ONE (16:03)
[2022-02-05] MEDS ORDERED: ONDANSETRON INJ 2 MG/ML 2 ML VIAL ONE (16:03)
[2022-02-05] MEDS ORDERED: PROPOFOL IV EMULSION 10 MG/ML 20 ML VIAL IV ONE (16:04)
[2022-02-05] MEDS ORDERED: LIDOCAINE 2%/EPINEPHRINE 1:100,000 20ML ONE (16:15)
[2022-02-05] MEDS ORDERED: MEPERIDINE HCL 25 MG/ML CARP/VIAL IV PRN (16:53)
[2022-02-05] MEDS ORDERED: MEPERIDINE HCL 25 MG/ML CARP/VIAL ONE (16:54)
--- NOTE | 2022-02-05 16:58 | Operative Report ---
PG Post Operative Report Pre & Post Diagnosis Operation Date: 02/05/22 13:05 Pre-Op Diagnosis: Peritonsillar Abscess Post-Op Diagnosis: Peritonsillar Abscess I identified the patient and participated in the time-out.: Yes Procedure Operation Date: 02/05/22 13:05 Actual Procedures p Left Incision and Drainage Peritonsillar Abscess(Left) - Kell Koenig MD Surgeon Kell Koenig MD Lead Carpenter None Estimated Blood Loss 5 Findings Consistent with Post-Op Diagnosis 1 cc abscess Specimens Culture Anesthesia Type General Complications None Description of Procedure She was brought to the operating room, properly identified, prepped and draped in usual sterile manner after general anesthesia with LMA. Mouthgag was placed. Left peritonsillar area injected with 2% Xylocaine with 1 20,000 strength epinephrine. Aspiration did not yield pus. Incision was made using #12 blade. Peritonsillar area was dissected open and the abscess cavity was drained using a tonsil hemostat cultures were taken. Abscess cavity was irrigated clean with 100 cc of saline. She tolerated procedure well was taken recovery area in satisfactory condition. I attest to the content of the Intraoperative Record and any orders documented therein. Any exceptions are noted below.
[2022-02-05] MEDS: fentaNYL citrate 100 MCG/2 ML VIAL IV PRN ×3 (17:00→17:10)
--- NOTE | 2022-02-05 17:06 | Anesthesiology Progress Note ---
Date of Service February 05, 2022 Anesthesia Post Procedure Vital Signs Vital Signs: Temp Pulse Pulse Resp BP BP Pulse Ox 02/05/22 15:00 75 02/05/22 16:55 99 H 16 125/99 96 02/05/22 16:49 36.7 C 101 H 12 134/76 95 02/05/22 15:51 36.8 C 85 18 119/77 97 02/05/22 11:28 36.6 C 80 18 113/72 97 02/05/22 08:00 72 02/05/22 08:06 36.5 C 84 18 112/73 98 02/05/22 04:00 36.5 C 70 16 121/75 94 02/05/22 00:34 36.7 C 67 18 123/76 96 02/05/22 00:13 90 18 127/88 99 02/04/22 18:02 02/04/22 17:14 36.5 C 94 H 18 129/79 99 O2 Del Method O2 Flow Rate 02/05/22 15:00 02/05/22 16:55 Oxymask 7 02/05/22 16:49 Oxymask 7 02/05/22 15:51 Room Air 02/05/22 11:28 Room Air 02/05/22 08:00 02/05/22 08:06 Room Air 02/05/22 04:00 Room Air 02/05/22 00:34 Room Air 02/05/22 00:13 02/04/22 18:02 Room Air 02/04/22 17:14 Room Air Pain Intensity Throat: Pain Intensity: 6 Transfer of Care Handoff Completed per policy Notes Mental Status: alert / awake / arousable Patient Amnestic to Procedure: Yes Nausea / Vomiting: adequately controlled Pain: adequately controlled Airway Patency, RR, SpO2: stable & adequate BP & HR: stable & adequate Hydration State: stable & adequate Anesthetic Complications: no major complications apparent
--- NOTE | 2022-02-05 19:01 | Billing Data ---
Date of Service February 05, 2022 Coding Level of Care Code 33137 Subseq Hosp Care Lvl 3
[2022-02-05] MEDS: ONDANSETRON INJ 2 MG/ML 2 ML VIAL IV PRN (19:04)
[2022-02-05] MEDS ORDERED: SERTRALINE HCL 100 MG TABLET PO SCH (21:00)
[2022-02-05] MEDS: GABAPENTIN 100 MG CAP PO SCH (21:49)
[2022-02-06] MEDS: ONDANSETRON INJ 2 MG/ML 2 ML VIAL IV PRN (05:40)
[2022-02-06] MEDS: HYDROmorphone INJ 1 MG/ML SYRINGE IV PRN (05:40)
[2022-02-06] MEDS: CLINDAMYCIN/D5W 600 MG/50 ML BAG IV SCH ×2 (05:40→14:09)
--- NOTE | 2022-02-06 08:03 | Ears,Nose,Throat Progress Note ---
Date of Service February 06, 2022 Assessment & Plan (1) Peritonsillar abscess: Plan: Status post incision and drainage of left peritonsillar abscess, improving, tolerating diet, can switch to p.o. antibiotic. We did discuss tonsillectomy. Patient does not desire. She can follow-up with me in my office as needed. Admission and Anticipated Discharge Date Admission Date: February 04, 2022 Subjective Still sore left side of the throat, less pressure. Eating well. Does have cough. Physical Exam ENMT: Mouth: + oropharynx abnormality (Still has uvular swelling, I&D site open, healing well) and + trismus (No more trismus) Neck: trachea midline, no thyromegaly Results & Data ([facility]) Vital Signs (Past 12 Hours) Vital Signs Temp Pulse Pulse Resp BP Pulse Ox O2 Del Method 02/06/22 07:53 83 02/06/22 03:10 36.5 C 97 H 18 118/75 97 Room Air 02/05/22 22:55 36.6 C 115 H 16 120/71 96 Room Air 02/05/22 20:36 36.7 C 96 H 18 143/76 H 96 Room Air
[2022-02-06 08:50] LABS: Hemoglobin 10.9 g/dl (12.0-16.0); Mean Corpuscular Hemoglobin 30.8 pg (25.0-34.0); Mean Corpuscular Hgb Conc 34.1 g/dL (32.0-36.0); Mean Corpuscular Volume 90.4 fL (80.0-100.0); Mean Platelet Volume 10.9 fL (9.4-12.3); Platelet Count 225 K/uL (130-400); RDW Coefficient of Variation 12.6 % (11.5-14.5); Red Blood Count 3.54 M/uL (3.93-5.22); White Blood Count 13.62 K/ul (4.8-10.8)
[2022-02-06] MEDS ORDERED: buPROPion SR 100 MG TABCR PO SCH (09:00)
[2022-02-06] MEDS ORDERED: LACTATED RINGER'S 1,000 ML IV SCH (09:00)
[2022-02-06] MEDS ORDERED: KETOROLAC TROMETHAMINE 15 MG/ML VIAL IV ONE (09:05)
[2022-02-06] MEDS ORDERED: dexAMETHasone 10 MG in SYRINGE 0 ML IV ONE (09:06)
[2022-02-06] MEDS: GABAPENTIN 100 MG CAP PO SCH (09:11)
[2022-02-06 09:13] LABS: BUN Creatinine Ratio 24.2 (10-20); Calcium 9.6 mg/dl (8.5-10.1); Creatinine Clr Calc Pharmacy 87.7 ml/min; Est GFR (African American) 116.1 ml/min; Est GFR (Non-African American) 100.1 ml/min; Potassium 3.8 mmol/L (3.5-5.1)
--- NOTE | 2022-02-06 10:46 | Hospitalist Progress Note ---
Date of Service February 06, 2022 Assessment & Plan (1) Peritonsillar abscess: Plan: (1) Peritonsillar abscess: Plan: - CT shows acute left-sided tonsillitis with a small 1 cm peritonsillar abscess. Moderate left parapharyngeal/peritonsillar edema with thickening of the left aryepiglottic fold and effacement of the left piriform sinus. Edema results in moderate supraglottic airway narrowing. -Incision and drainage performed by ENT on 02/05, culture collected -Gram stain showing majority of gram + cocci, most likely consistent with Strep Pyogenes - Clindamycin 600 mg IV every 8 hours, discontinued Levaquin has bacteria is most likely strep pyogenes -Will be converted to oral when she can tolerate po intake and will need to complete a 14 day course of clinda. Today is day 3 of 14 - due to swelling and difficulty swallowing today, gave 10 mg of dexamethasone - Clear liquids and advance diet as tolerated - Pain control with Tylenol, dilaudid -Gave one 15 mg dose of IV toradol for both pain and anti-inflamatory - Antiemetics as needed. -Disposition will be based off of how well the patient can tolerate foods and liquids (2) Multiple sclerosis: Plan: - Ocrelizumab injections every 6 months, due next month. - Gabapentin 100 mg daily; will restart when able to tolerate PO (3) Depression: Plan: - Hold all p.o. meds that cannot be converted to IV. - Takes Zoloft 100 mg at night, Ativan 0.5 mg as needed, Wellbutrin 100 mg daily. (4) Anemia: Plan: - 10.9, consistent with outpatient labs. Monitor. - Dispo: Currently in PCU, can downgrade assuming I&D goes without complication - DVT Prophylaxis: SCDs for VTE ppx. - Code status: Full Code. (2) Multiple sclerosis: (3) Anemia: (4) Depression: Admission and Anticipated Discharge Date Admission Date: February 04, 2022 Subjective Patient seen at bedside this morning. No acute events reported overnight. Unfortunately patient having difficulty with swallowing and is only able to get small portions of the food that she chews down the back of her throat. Patient is having a choking sensation with both liquid and solid foods. Patient is very tearful when discussing this with me as she was afraid that she was going to choke. Otherwise pain is somewhat improved from yesterday but still requesting pain medication whenever she is able to receive it. Otherwise denies fever, chills, shortness of breath, nausea, or vomiting. Patient is hungry and would like to eat but is afraid to. Review of Systems Review of Systems: All systems reviewed & are unremarkable except as noted in HPI & below Physical Exam Constitutional: WD/WN, vitals as above Eyes: + anicteric sclerae ENMT: Mouth: + oral mucosal abnormality (soft palate and uvula swelling and open incision of L tonsil) Neck: trachea midline, no thyromegaly Respiratory: normal respiratory effort, lungs clear to auscultation Cardiovascular: RRR, no murmur, no edema Gastrointestinal (Abdomen): normal bowel sounds, soft, nontender, no hepatosplenomegaly Musculoskeletal: Head/Neck/Chest: normocephalic and head atraumatic Skin: no rashes, warm and dry Neurologic: moves all extremities Psychiatric: Orientation: alert and oriented x 3 Affect: + anxious affect Results & Data Results & Data ([facility]) Vital Signs (Past 12 Hours) Vital Signs Temp Pulse Pulse Resp BP Pulse Ox O2 Del Method 02/06/22 07:36 36.6 C 87 16 119/75 96 Room Air 02/06/22 07:53 83 02/06/22 03:10 36.5 C 97 H 18 118/75 97 Room Air 02/05/22 22:55 36.6 C 115 H 16 120/71 96 Room Air
--- NOTE | 2022-02-06 15:23 | Discharge Summary ---
Date of Service February 06, 2022 Admission HPI Per Admitting Provider Danisha Greene is a 56-year-old female with a past medical history significant for MS and depression who presents today with a sore throat. Yesterday morning, she woke up and the left side of her throat was sore and she felt fatigued. She took Advil and slept the rest of the day, the pain got somewhat better but never really went away. She woke up this morning and it was significantly worse and she was having difficulty swallowing due to pain, managing only to sip on chicken broth. She saw her PCP who referred her to the ED due to concerns for a peritonsillar abscess. She has been hot and cold the past two days but no objective fevers, SOB, choking, chest pain, palpitations, nausea, or vomiting. She has not had this occur before, no recent dental work or ENT infections. In ED, patient's HR 94, otherwise vital signs within normal limits, they are stable. Labs significant for WBC 12.51 with left shift, Hgb 11.3 which is consistent with her baseline, renal function at baseline, without any electro lyte abnormalities, no transaminitis. COVID-negative. CT of soft tissues of the neck showed acute left-sided tonsillitis with a small 1 cm peritonsillar abscess and moderate left parapharyngeal/peritonsillar edema with thickening of the left aryepiglottic fold and effacement of the left piriform sinus with moderate supraglottic airway narrowing. Patient received clindamycin, dexamethasone, hydromorphone, and Zofran in the ED. Principal Diagnosis Peritonsillar abscess Discharge Exam Constitutional WD/WN, vitals as above Eyes + anicteric sclerae ENMT Mouth: + oral mucosal abnormality (soft palate and uvula swelling and open incision of L tonsil) and + muffled voice Neck trachea midline, no thyromegaly Respiratory normal respiratory effort, lungs clear to auscultation Cardiovascular RRR, no murmur, no edema Gastrointestinal (Abdomen) normal bowel sounds, soft, nontender, no hepatosplenomegaly Musculoskeletal Head/Neck/Chest: normocephalic and head atraumatic Skin no rashes, warm and dry Neurologic moves all extremities Psychiatric Orientation: alert and oriented x 3 Affect: + anxious affect Discharge Data Allergies Allergy/AdvReac Type Severity Reaction Status Date / Time amoxicillin Allergy Intermediate rash Verified 10/30/21 11:22 Penicillins Allergy Unknown Verified 10/30/21 11:22 metronidazole AdvReac Severe diarrhea Verified 10/30/21 11:22 Bactrim AdvReac Intermediate vomiting Unverified 12/09/16 12:37 from oral bactrim sulfamethoxazole AdvReac Intermediate vomiting Verified 10/30/21 11:22 from oral bactrim trimethoprim AdvReac Intermediate vomiting Verified 10/30/21 11:22 from oral bactrim Consultations 02/04/22 20:08 ED Decision to Admit Stat 02/05/22 00:33 Consult Otolaryngology (Head and Neck) Routine Procedures Performed Operation Date: 02/05/22 13:05 Actual Procedures p Left Incision and Drainage Peritonsillar Abscess(Left) - Kell Koenig MD Ordered Studies 02/04/22 18:15 CT soft tissue neck w con Stat Hospital Course (1) Peritonsillar abscess: (1) Peritonsillar abscess: Plan: - CT shows acute left-sided tonsillitis with a small 1 cm peritonsillar abscess. Moderate left parapharyngeal/peritonsillar edema with thickening of the left aryepiglottic fold and effacement of the left piriform sinus. Edema results in moderate supraglottic airway narrowing. -Incision and drainage performed by ENT on 02/05, culture collected -Gram stain showing majority of gram + cocci, most likely consistent with Strep Pyogenes - Clear liquids and advance diet as tolerated - Pain control with Tylenol, dilaudid - Antiemetics as needed. - Clindamycin 600 mg IV every 8 hours, discontinued Levaquin has bacteria is most likely strep pyogenes - due to swelling and difficulty swallowing today, gave 10 mg of dexamethasone, swallowing improved when checked later in the day -Sent an additional 12 days worth of 300 mg clindamycin q6h -D/c home under self care, pain control with tylenol and ibuprofen -F/u with ENT tbd, f/u with PCP within one week (2) Multiple sclerosis: Plan: - Ocrelizumab injections every 6 months, due next month. - Gabapentin 100 mg daily; will restart when able to tolerate PO (3) Depression: Plan: - Hold all p.o. meds that cannot be converted to IV. - Takes Zoloft 100 mg at night, Ativan 0.5 mg as needed, Wellbutrin 100 mg daily. (4) Anemia: Plan: - 10.9, consistent with outpatient labs. Monitor. - Dispo: d/c home - DVT Prophylaxis: SCDs for VTE ppx. - Code status: Full Code. (2) Multiple sclerosis: (3) Anemia: (4) Depression: Total Time Total Time Spent Total Time Spent (In Minutes): Less than 30 Discharge Plan Discharge Items Patient Disposition: Home - Self-Care Reason For Visit: PERITONSILLAR ABSCESS Discharge Diagnosis: Status post incision and drainage of peritonsillar abscess Activity: Per Instructions section Non-emergency contact: Primary Care Provider and Specialist Call non-emergency contact if: you have any medication questions, your symptoms worsen and your temperature is above 101.5 Follow-up/Referrals: Kell Koenig MD [Physician] - 02/18/22 3:00 pm Isaac Navarro MD [Primary Care Provider] - 02/13/22 7:50 am Diet: Regular Addtl Attending Provider Instructions: You were evaluated in the hospital for a peritonsillar abscess on the left side. While you are here it was incised and drained by ENT. Additionally you were started on antibiotics. Specifically you were started on clindamycin IV and this will be converted to oral upon discharge. You will take your antibiotics every 6 hours for 12 days after discharge reaching a total of 14 days of antibiotic therapy. This was sent to your pharmacy in [place]. You will have a follow-up appointment with ENT which will be scheduled for you. You may notice that you have difficulty with eating foods secondary to pain and we recommend that you start with soft foods such as Jell-O, eggs, or mashed potatoes etc. and titrate up as tolerated to a regular diet. For your pain we do recommend utilizing Tylenol and ibuprofen for pain control. You may take up to 3000 mg of Tylenol daily and you may take up to 2400 mg of ibuprofen daily. If you experience the following symptoms please return to the emergency room for evaluation: Fever greater than 101 F, inability to eat or drink, low blood pressure, or profuse nausea and vomiting. Has been a pleasure to be a part of your care and we wish you the best in both your health and recovery. Please follow-up with your primary care provider within 1 week of discharge for continuity of care. Pending Studies at Discharge: Yes Studies:: Culture from abscess fluid Stand-Alone Forms: [facility], Smoking Cessation Medications and DC Order Prescriptions: New clindamycin HCl 300 mg capsule 300 mg PO Q6H 12 Days Qty: 48 0RF Continued gabapentin 100 mg capsule 100 mg PO BID 90 Days Qty: 180 1RF Hold Instructions: temporary increase for one week Ocrevus 30 mg/mL solution 600 mg IV .COMPLEX Qty: 10 1RF Rx Instructions: 300 mg IV Day1 and Day15,then 600mg IV every 6 months. 30 mins before each infusion, premedicate w/ methylprednisolone 100mg iv,Diphenhydramine 25mg iv,and Actaminophen 500mg PO. ; May give an additional 25mg diphenhydramine IV during infusion PRN multivitamin Tablet 1 tab PO DAILY sertraline [Zoloft] 100 mg tablet 100 mg PO HS bupropion HCl [Wellbutrin SR] 100 mg tablet sustained-release 12 hr 100 mg PO DAILY lorazepam [Ativan] 0.5 mg tablet 0.5 mg PO DAILY PRN (Reason: Anxiety) cholecalciferol (vitamin D3) [Vitamin D3] 1,000 unit Capsule 0 unit PO DAILY Discharge Orders: Discharge Order (Routine); Ordered 02/06/22 Ordered By: Ash Angel Admission Data Admit Date/Time: 02/04/22 20:18 Attending Provider: Joe Claudio Admit Provider: Umair Torres Primary Care Provider: Isaac Navarro Other Providers: Umair Torres ; Kell Koenig How Other Interventions: Discharge Summary Assessment (RN) Last Done: 02/06/22 16:00 Supervising Physician Co-Signing Physician Notes I personally examined the patient and verified all platt points of history and exam, discussed case, and agree with decision making with Dr Angel After steroids and Toradolpain better controlled. She is able to tolerate p.o. well enough that she feels like she could go home. She is able to swallow pills and tolerate full liquids. vitals noted nad heent nc at mmm pharynx erythematous with mild degree of exudate consistent with a postoperative status breathing unlabored no stridor no accessory muscles good effort skin no rashes no pallor or icterus peritonsilar abscess w sepsis present on admission -now post surgery. Continue antibiotics. Pain controlled well enough to go home. Otherwise as above
--- NOTE | 2022-02-06 18:20 | Billing Data ---
Date of Service February 06, 2022 Coding Level of Care Code D/C DAY MANAGEMENT <30 MINS
== END 2022-02-06 16:45 | disposition home or self-care (01) | DRG 854 ==
LOC: ED 17:11 → SUATTDRO 20:18 → 4W 20:18